=== PATIENT | female | born 1975 | race African-American/Black ===

== ENCOUNTER 2017-03-20 12:24 | Emergency (ER) | payer BC, OTHER ==
[~2017-03-20] VITALS: Ht 165.1 cm; Wt 67.6 kg
[~2017-03-20 12:24] MED LIST: IBUP-1050 PO
[2017-03-20 12:37] VITALS: TEMP 36.6; Ht 165.1 cm; Wt 67.6 kg
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
[2017-03-20 14:00] VITALS: BP 128/87; PULSE 83; O2SAT 99
== END 2017-03-20 14:01 | disposition home or self-care (01) ==
LOC: C.EDB 12:25 → C.EDD 14:01
DX: S00.83XA Contusion of other part of head, initial encounter (principal); S00.531A Contusion of lip, initial encounter; S39.012A Strain of muscle, fascia and tendon of lower back, initial encounter; S30.0XXA Contusion of lower back and pelvis, initial encounter; V43.52XA Car driver injured in collision with other type car in traffic accident, initial encounter

== ENCOUNTER → 2017-06-06 | Outpatient (CLI) | payer BC ==
[2017-06-06 09:44] LABS: GLUCOSE,FASTING 90 mg/dl (70-99)
[2017-06-06 09:47] LABS: CHOLESTEROL 158 mg/dl (0-200)
[2017-06-06 10:56] LABS: ESTIMATED AVERAGE GLUCOSE 120 mg/dl; HA1C FLAG Normal (Normal)
== END | disposition home or self-care (01) ==
LOC: C.LAB 07:42
PROVIDERS: ATTEND Family Medicine
DX: R53.83 Other fatigue (principal)

== ENCOUNTER 2019-09-11 08:15 | Inpatient (IN) ==
--- OUTSIDE RECORDS SUMMARY | 2019-09-11 08:18 | External Medical Summary | Continuity of Care Document ---
:1975 Author Name Kolby George Address Unavailable Unavailable , Care Team Providers Name Role Phone Unavailable Unavailable Unavailable Viktoriya Diaz M.D. Unavailable [email or web address] Tuyet Harris DO Unavailable [email or web address] Javier DIAZ Unavailable Unavailable Unavailable Unavailable Unavailable Assessments Assessed Problems:FHx: malignant neoplasm of gastrointestinal tract Problems A Fall Due To Slipping, Tripping, Or Stumbling (E885.9) Hematochezia (578.1) (K92.1) Urinary tract infection (599.0) (N39.0) Palpitations (785.1) (R00.2) Fatigue (780.79) (R53.83) Joint pain, knee (719.46) (M25.569) Pain in joint of right shoulder (719.41) (M25.511) Anxiety (300.00) (F41.9) Otitis externa (380.10) (H60.90) Allergies and Adverse Reactions No Known Drug Allergies (Allergy) Medications Mariela WILLOUGHBY M.D. Start: 08-Jun-2012 Refills: 0 ALPRAZolam 0.25 MG Oral Tablet; TAKE 1 TABLET TWICE DA JADA. Ariel Diaz Start: 31-Jan-2014 Quantity: 20 Refills: 0 Mefloquine HCl - 250 MG Oral Tablet; BENJAMIN E 1 TABLET WEEKLY (ON THE SAME DAY OF EACH WEEK) BEGINNING 1 WEEK BEFORE DEPARTURE, CONTINUE DURING TRAVEL AND FOR 4 WEEKS AFTER RETURN. Ariel Diaz Start: 31-Jan-2014 Quantity: 20 Refills: 5 levoFLOXacin 500 MG Oral Tablet; TAKE ON E TABLET BY MOUTH ONCE EVERY DAY FOR 10 DAYS Ariel Diaz Start: 31-Jan-2014 Quantity: 10 Refills: 3 PEG-3350/Electrolytes 236 GM Oral Soluti on Reconstituted; DRINK 1 8OZ. GLASS EVERY 10-15 MINUTES Case, DO Stephen BrendaMaddie Start: 10-Jun-2014 Quantity: 1 4000 ML Bottle Refills: 0 Fluocinonide 0.05 % External Cream; APPL Y SPARINGLY TO AFFECTED AREA(S) TWICE DAILY Ariel Diaz Start: 08-Jun-2012 Quantity: 1 60 GM Tube Refills: 5 Procedures Procedures not documented Immunizations Immunizations not documented Family History Father FHx: malignant neoplasm of gastrointestinal tract (V16 .0) (Z80.0) Status: Active Social History - Smoking Status Never smoker Plan of Treatment Planned Observations Planned Goals not documented Results No Known Results Results not documented
[2019-09-11] MEDS ORDERED: SODIUM CHLORIDE 0.9% 1000ML 1,000 ML IV SCH (08:45)
[2019-09-11] MEDS: METOPROLOL TARTRATE 1 MG/ML VIAL IV PRN ×3 (08:47→09:22)
[2019-09-11 08:49] LABS: Basophils # (auto) 0.02 K/uL (0-0.2); Basophils % (auto) 0.4 %; Eosinophils # (auto) 0.04 K/uL (0-0.5); Eosinophils % (auto) 0.7 %; Hematocrit (blood only) 40.1 % (37-47); Hemoglobin 13.5 g/dL (12.0-16.0); Immature Granulocytes # (auto) 0.01 K/uL (0.00-0.02); Immature Granulocytes % (auto) 0.2 %; Lymphocytes # (auto) 1.56 K/uL (1.2-3.4); Lymphocytes % (auto) 28.6 %; Mean Corpuscular Hemoglobin 30.8 pg (25-34); Mean Corpuscular Hgb Conc 33.7 g/dL (32-36); Mean Corpuscular Volume 91.3 fL (80-100); Mean Platelet Volume 10.9 fL (7.4-10.4); Monocytes # (auto) 0.37 K/uL (0.11-0.59); Monocytes % (auto) 6.8 %; Neutrophils # (auto) 3.46 K/uL (1.4-6.5); Neutrophils % (auto) 63.3 %; Platelet Count 232 K/uL (130-400); RDW Coefficient of Variation 14.1 % (11.5-14.5); RDW Standard Deviation 47.2 fL (36.4-46.3); Red Blood Count 4.39 M/uL (4.2-5.4); White Blood Count 5.46 K/uL (4.8-10.8)
[2019-09-11 09:07] LABS: Albumin Level 3.8 gm/dl (3.4-5.0); BUN Creatinine Ratio 13.2 (10-20); Calcium 9.1 mg/dl (8.5-10.1); Creatinine Clr Calc Pharmacy 77.1 ml/min; Est GFR (African American) 99.5; Est GFR (Non-African American) 85.8; Magnesium 2.3 mg/dl (1.8-2.4); Potassium 3.9 mmol/L (3.5-5.1)
[2019-09-11 09:17] LABS: Albumin Globulin Ratio 0.9 (0.9-2); Bilirubin,Total 0.2 mg/dl (0.2-1); Globulin 4.1 gm/dl (2.5-4.0); Thyroid Stimulating Hormone 0.248 uIu/ml (0.300-4.500); Total Protein 7.9 gm/dl (6.4-8.2)
[2019-09-11 09:30] LABS: T4 Free Thyroxine 0.99 ng/dl (0.8-1.6)
[2019-09-11] MEDS ORDERED: dilTIAZem HCl 5 MG/ML 5 ML VIAL IV STA ×2 (09:41→11:08)
--- NOTE | 2019-09-11 10:37 | History & Physical Report ---
Date of Service September 11, 2019 Assessment & Plan (1) Atrial flutter with rapid ventricular response: Patient was started on Cardizem drip which will be titrated per protocol. Add Lovenox. Check echocardiogram. Monitor electrolytes. Patient will be monitored on the telemetry floor. Present on Admission?: Yes (2) Palpitations: Secondary to atrial flutter with rapid ventricular rate. Present on Admission?: Yes (3) Low TSH level: We will check T3 and T4 levels. Present on Admission?: Yes (4) Anxiety: May need antianxiety medications. History of Present Illness Chief Complaint: Palpitations Primary Care Provider: Maximus Morales MD The patient is 44-year-old female originally from [facility]. She presented to the ER today with chief complaints of palpitations. She woke up this morning approximately 2 AM with palpitations. No significant chest pain or shortness of breath. No swelling of the legs. No syncope. She had few beers last night. Here in the ER, she was found to be having atrial flutter with rapid ventricular rate. She received metoprolol x3 and also Cardizem bolus but her heart rate remains high; she will be started on Cardizem drip. She will be admitted for further evaluation and management. Allergies Allergy/AdvReac Type Severity Reaction Status Date / Time No Known Allergies Allergy Unknown Verified 09/11/19 08:59 Home Medications Home Medications Medication Instructions Recorded Confirmed Type ascorbic acid (vitamin C) [Vitamin 1 g PO DAILY 09/11/19 09/11/19 History C] biotin 1 mg PO DAILY 09/11/19 09/11/19 History cholecalciferol (vitamin D3) 1,000 unit PO DAILY 09/11/19 09/11/19 History [Vitamin D3] cyanocobalamin (vitamin B-12) 1,000 mcg PO DAILY 09/11/19 09/11/19 History [Vitamin B-12] multivitamin 1 tab PO DAILY 09/11/19 09/11/19 History omega 8-[id number]-pmu-fish oil [Fish Oil] 1 cap PO DAILY 09/11/19 09/11/19 History zinc 50 mg PO DAILY 09/11/19 09/11/19 History Past Med/Surg History Medical History No significant past medical history Family History Other No significant family history Social History marital status: Current Living Situation: Spouse current occupational status: employed Feels Safe at Home: Yes Smoking Status: Never smoker Review of Systems Review of Systems: All systems reviewed & are unremarkable except as noted in HPI & below Psychiatric: + anxiety Physical Exam Physical Exam: GENERAL : No acute distress EYES: No icterus, gaze conjugate NOSE: No evidence of epistaxis MOUTH: No lesions or candidiasis, mucosa moist NECK: Supple LUNGS: CTA B/L, no wheezes, rales or rhonchi HEART: Irregular, atrial flutter noted on the monitor. ABDOMEN: Soft, NT, ND, BS Present EXTREMITIES: No LE edema, pedal pulses intact NEURO: A&OX3 Results & Data Vital Signs (Past 12 Hours) Vital Signs Temp Pulse Pulse Resp BP BP Pulse Ox 09/11/19 10:20 77 19 100 09/11/19 10:10 78 16 100 09/11/19 10:01 77 17 99 09/11/19 10:00 78 14 110/75 99 09/11/19 09:52 76 83 17 112/80 112/80 100 09/11/19 09:45 143 H 15 99 09/11/19 09:40 144 H 11 L 114/97 100 09/11/19 09:25 144 H 18 118/96 09/11/19 09:23 145 H 13 124/92 100 09/11/19 09:22 143 H 124/92 09/11/19 09:17 145 H 10 L 120/99 100 09/11/19 09:12 145 H 146/105 H 09/11/19 09:10 144 H 12 120/99 100 09/11/19 09:00 143 H 145 H 16 146/105 H 146/105 H 100 09/11/19 08:53 143 H 15 131/96 100 09/11/19 08:47 153 H 134/90 09/11/19 08:35 100 09/11/19 08:19 98.4 F 156 H 18 127/59 L 100 Laboratory Results 09/11/19 08:35 09/11/19 08:35 Code Status & VTE Plan Code Status full code VTE Prophylaxis Plan VTE Prophylaxis will be ordered: Yes PG Care Time/CCT Total # of Minutes Spent Total Time Spent with Patient: Total time spent is greater than 50% in coordin ation of care (as documented) at patient's floor/unit and/or counseling patient: 60 m
[2019-09-11] MEDS ORDERED: ALUMINUM/MAGNESIUM SUSP 30 ML UDC PO PRN (11:29)
[2019-09-11] MEDS ORDERED: POLYETHYLENE (MIRALAX) 17 GM PACK PO PRN (11:29)
[2019-09-11] MEDS ORDERED: ONDANSETRON INJ 2 MG/ML 2 ML VIAL IV PRN (11:29)
[2019-09-11] MEDS ORDERED: LORazepam 0.5 MG TAB PO PRN (11:29)
[2019-09-11] MEDS ORDERED: NITROGLYCERIN SL 0.4 MG/TAB TAB SL PRN (11:29)
[2019-09-11] MEDS ORDERED: ZOLPIDEM TARTRATE 5 MG TAB PO PRN (11:29)
[2019-09-11] MEDS ORDERED: MAGNESIUM HYDROXIDE SUSP 30 ML UDC PO PRN (11:29)
[2019-09-11] MEDS ORDERED: ACETAMINOPHEN 325 MG TAB PO PRN (11:29)
[2019-09-11] MEDS ORDERED: MoRPHine SULFATE 2 MG/ML CARP IV PRN (11:29)
[2019-09-11] MEDS ORDERED: dilTIAZem HCl 5 MG/ML 5 ML VIAL IV ONE (12:21)
[2019-09-11] MEDS: dilTIAZem HCl 125 MG in DEXTROSE 5% 100 ML IV SCH ×2 (12:23→21:53)
[2019-09-11] MEDS: SODIUM CHLORIDE 0.9% 1000ML 1,000 ML IV SCH ×2 (12:25→21:53)
[2019-09-11] MEDS: ENOXAPARIN INJ 60 MG/0.6 ML SYR SQ SCH ×2 (13:20→23:10)
--- NOTE | 2019-09-11 14:19 | Emergency Department Note ---
Entered by Sheree Moreland acting as a scribe for History of Present Illness General Chief complaint: Arrhythmia/Palpitations Stated complaint: heart racing Source: patient History of Present Illness Onset (ago): hour(s) (this morning) Location: chest Pain Consistency: + other (episode) Quality: + other (elevated heart rate) Associated symptoms: + denies other symptoms (weight loss, hair loss) The patient is a 44 year old female that is presenting to the Emergency Room with complaints of an episode of an elevated heart rate that started around 0230 this morning. The patient reports that she woke up this morning and felt like her heart was racing. She states that she felt generally well yesterday. She denies any recent weight or hair loss. She notes that she drinks a Detox tea and green tea but denies any other caffeine intake. 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 She denies any significant medical problems or taking any daily medications. She denies any cardiac history. She notes that her last menstrual period started on 09/08/19. Home Medications Home Medications Medication Instructions Recorded Confirmed Type ascorbic acid (vitamin C) [Vitamin 1 g PO DAILY 09/11/19 09/11/19 History C] biotin 1 mg PO DAILY 09/11/19 09/11/19 History cholecalciferol (vitamin D3) 1,000 unit PO DAILY 09/11/19 09/11/19 History [Vitamin D3] cyanocobalamin (vitamin B-12) 1,000 mcg PO DAILY 09/11/19 09/11/19 History [Vitamin B-12] multivitamin 1 tab PO DAILY 09/11/19 09/11/19 History omega 4-efx-odr-fish oil [Fish Oil] 1 cap PO DAILY 09/11/19 09/11/19 History zinc 50 mg PO DAILY 09/11/19 09/11/19 History Allergies Allergy/AdvReac Type Severity Reaction Status Date / Time No Known Allergies Allergy Unknown Verified 09/11/19 08:59 Past Med/Surg History Medical History No significant past medical history Family History Other No significant family history Social History Preferred Language: Dutch Communication Ability: Effective General Internist Required: No Beliefs That Will Affect Care: None marital status: Current Living Situation: Family Current Living Situation Comment: , son current occupational status: employed Feels Safe at Home: Yes Smoking Status: Never smoker Hx Alcohol Use: Yes Alcohol type: wine Hx Substance Use: No Review of Systems See HPI for pertinent positives & negatives. and A total of 10 systems reviewed and were otherwise negative Physical Exam Vital Signs Vital Signs - 24 hr 09/11/19 08:19 09/11/19 08:35 09/11/19 08:47 Temperature 36.9 C Temperature Source Oral Sepsis Recent Fever Within 48 Hours No Sepsis Action Taken by Nursing No Action Required Pulse Rate 156 H 153 H Pulse Rate [Apical] Pulse Rate from SpO2 Sensor Pulse Rhythm [Apical] Respiratory Rate 18 Respiratory Effort / Characteristics Non-Labored Spontaneous Respiratory Depth Normal Respiratory Pattern Blood Pressure 127/59 L 134/90 Blood Pressure [Left Arm] Blood Pressure Mean 81 Blood Pressure Mean [Left Arm] Blood Pressure Position Sitting Blood Pressure Position [Left Arm] Pulse Oximetry 100 100 Oxygen Delivery Method Room Air Room Air Oxygen Flow Rate 09/11/19 08:53 09/11/19 09:00 09/11/19 09:10 Temperature Temperature Source Sepsis Recent Fever Within 48 Hours Sepsis Action Taken by Nursing Pulse Rate 143 H 144 H Pulse Rate [Apical] 143 H 145 H Pulse Rate from SpO2 Sensor 143 H 144 H Pulse Rhythm [Apical] Regular Respiratory Rate 15 16 12 Respiratory Effort / Characteristics Non-Labored Non-Labored Respiratory Depth Normal Normal Respiratory Pattern Regular Regular Blood Pressure 146/105 H 120/99 Blood Pressure [Left Arm] 131/96 146/105 H Blood Pressure Mean 118 106 Blood Pressure Mean [Left Arm] 107 118 Blood Pressure Position Blood Pressure Position [Left Arm] Lying Sitting Pulse Oximetry 100 100 100 Oxygen Delivery Method Room Air Room Air Oxygen Flow Rate 0 09/11/19 09:12 09/11/19 09:17 09/11/19 09:22 Temperature Temperature Source Sepsis Recent Fever Within 48 Hours Sepsis Action Taken by Nursing Pulse Rate 145 H 145 H 143 H Pulse Rate [Apical] Pulse Rate from SpO2 Sensor 145 H Pulse Rhythm [Apical] Respiratory Rate 10 L Respiratory Effort / Characteristics Respiratory Depth Respiratory Pattern Blood Pressure 146/105 H 120/99 124/92 Blood Pressure [Left Arm] Blood Pressure Mean 106 Blood Pressure Mean [Left Arm] Blood Pressure Position Blood Pressure Position [Left Arm] Pulse Oximetry 100 Oxygen Delivery Method Oxygen Flow Rate 09/11/19 09:23 09/11/19 09:25 09/11/19 09:40 Temperature Temperature Source Sepsis Recent Fever Within 48 Hours Sepsis Action Taken by Nursing Pulse Rate 145 H 144 H 144 H Pulse Rate [Apical] Pulse Rate from SpO2 Sensor 145 H 144 H Pulse Rhythm [Apical] Respiratory Rate 13 18 11 L Respiratory Effort / Characteristics Respiratory Depth Respiratory Pattern Blood Pressure 124/92 118/96 114/97 Blood Pressure [Left Arm] Blood Pressure Mean 102 103 102 Blood Pressure Mean [Left Arm] Blood Pressure Position Blood Pressure Position [Left Arm] Pulse Oximetry 100 100 Oxygen Delivery Method Oxygen Flow Rate 09/11/19 09:45 09/11/19 09:52 09/11/19 10:00 Temperature Temperature Source Sepsis Recent Fever Within 48 Hours Sepsis Action Taken by Nursing Pulse Rate 143 H 76 78 Pulse Rate [Apical] 83 Pulse Rate from SpO2 Sensor 143 H 76 78 Pulse Rhythm [Apical] Irregular Respiratory Rate 15 17 14 Respiratory Effort / Characteristics Non-Labored Respiratory Depth Normal Respiratory Pattern Blood Pressure 112/80 110/75 Blood Pressure [Left Arm] 112/80 Blood Pressure Mean 90 86 Blood Pressure Mean [Left Arm] 90 Blood Pressure Position Blood Pressure Position [Left Arm] Sitting Pulse Oximetry 99 100 99 Oxygen Delivery Method Room Air Oxygen Flow Rate 09/11/19 10:01 09/11/19 10:10 09/11/19 10:20 Temperature Temperature Source Sepsis Recent Fever Within 48 Hours Sepsis Action Taken by Nursing Pulse Rate 77 78 77 Pulse Rate [Apical] Pulse Rate from SpO2 Sensor 78 78 78 Pulse Rhythm [Apical] Respiratory Rate 17 16 19 Respiratory Effort / Characteristics Respiratory Depth Respiratory Pattern Blood Pressure Blood Pressure [Left Arm] Blood Pressure Mean Blood Pressure Mean [Left Arm] Blood Pressure Position Blood Pressure Position [Left Arm] Pulse Oximetry 99 100 100 Oxygen Delivery Method Oxygen Flow Rate Vital signs reviewed. General: Well-appearing female, in no significant distress. HEENT: No scleral icterus, PERRLA, neck supple. Atraumatic. Cardiovascular: Tachycardic rate and regular rhythm, no extra sounds. Pulmonary: Clear to auscultation bilaterally, normal work of breathing. Abdomen: Soft, nontender, nondistended, positive bowel sounds. Musculoskeletal: Atraumatic, no peripheral edema. Neurologic: Patient awake alert and oriented x 3 Skin: Warm, dry, no rash Course 0831:The patient was evaluated in room B05. A complete history and physical examination was performed. 1028: I discussed the patients case with Dr. Leggett, [facility], who will evaluate the patient for further management and care. 1030: Upon reevaluation, the patient is resting comfortably. I discussed laboratory and radiographic results with the patient. She verbalized agreement of the treatment plan. The patient will be evaluated for further management and care. Administered Medications Enoxaparin Sodium (Lovenox) 60 mg SQ Q12 AJNET Stop: 10/11/19 12:29 Last Admin: 09/11/19 13:20 Dose: 60 mg Documented by: [id number] Diltiazem HCl 125 mg/ Dextrose 125 mls @ 10 mls/hr IV .[id number] JANET; Protocol Stop: 10/11/19 11:14 Last Titration: 09/11/19 13:20 Dose: 10 mg/hr, 10 mls/hr Documented by: [id number] Admin: 09/11/19 12:23 Dose: 5 mg/hr, 5 mls/hr Documented by: [id number] Cosigned by: [id number] Sodium Chloride (Nss 1000ml) 1,000 mls @ 100 mls/hr IV .Q10H JANET Stop: 10/11/19 11:59 Last Admin: 09/11/19 12:25 Dose: 100 mls/hr Documented by: [id number] Discontinued Medications Diltiazem HCl (Cardizem) 10 mg IV NOW STA Stop: 09/11/19 09:42 Last Admin: 09/11/19 09:46 Dose: 10 mg Documented by: [id number] Cosigned by: [id number] Diltiazem HCl (Cardizem) 10 mg IV NOW STA Stop: 09/11/19 11:09 Last Admin: 09/11/19 12:25 Dose: 10 mg Documented by: [id number] Cosigned by: [id number] Diltiazem HCl (Cardizem) Confirm Administered Dose 25 mg IV .STK-MED ONE Stop: 09/11/19 12:22 Last Admin: 09/11/19 12:25 Dose: Not Given Documented by: [id number] Sodium Chloride (Nss 1000ml) 1,000 mls @ 125 mls/hr IV .Q8H JANET Stop: 09/11/19 16:44 Last Infusion: 09/11/19 11:53 Dose: 0 mls/hr Documented by: [id number] Admin: 09/11/19 08:47 Dose: 125 mls/hr Documented by: [id number] Metoprolol Tartrate (Lopressor) 5 mg IV Q5M PRN PRN Reason: Tachycardia Stop: 10/11/19 08:37 Last Admin: 09/11/19 09:22 Dose: 5 mg Documented by: [id number] Admin: 09/11/19 09:12 Dose: 5 mg Documented by: [id number] Admin: 09/11/19 08:47 Dose: 5 mg Documented by: [id number] Medical Decision Making Differential Diagnosis Differential diagnosis: Etiologies such as premature contractions, electrolyte abnormality, cardiac dysrhythmia, thyroid dysfunction, pulmonary embolism, infection, gastrointestinal, as well as others were entertained. Medical Records Attestation: I reviewed the patient's medical records. Home Medications Current Medication List: was personally reviewed by me Laboratory Data Attestation: I reviewed the patient's lab results. Result diagrams: 09/11/19 08:35 09/11/19 08:35 Lab Results 09/11/19 09/11/19 Range/Units 08:35 08:35 WBC 5.46 (4.8-10.8) K/uL RBC 4.39 (4.2-5.4) M/uL Hgb 13.5 (12.0-16.0) g/dL Hct 40.1 (37-47) % MCV 91.3 (80-100) fL MCH 30.8 (25-34) pg MCHC 33.7 (32-36) g/dL RDW Std Deviation 47.2 H (36.4-46.3) fL RDW Coeff of Jacinto 14.1 (11.5-14.5) % Plt Count 232 (130-400) K/uL MPV 10.9 H (7.4-10.4) fL Immature Gran % (Auto) 0.2 % Neut % (Auto) 63.3 % Lymph % (Auto) 28.6 % [place] % (Auto) 6.8 % Eos % (Auto) 0.7 % Baso % (Auto) 0.4 % Immature Gran # (Auto) 0.01 (0.00-0.02) K/uL Neut # (Auto) 3.46 (1.4-6.5) K/uL Lymph # (Auto) 1.56 (1.2-3.4) K/uL [place] # (Auto) 0.37 (0.11-0.59) K/uL Eos # (Auto) 0.04 (0-0.5) K/uL Baso # (Auto) 0.02 (0-0.2) K/uL Sodium 137 (136-145) mmol/L Potassium 3.9 (3.5-5.1) mmol/L Chloride 105 (98-107) mmol/L Carbon Dioxide 25 (21-32) mmol/L Anion Gap 7.0 (3-11) BUN 11 (7-18) mg/dl Creatinine 0.82 (0.6-1.2) mg/dl Est Cr Clr Drug Dosing 77.1 ml/min Est GFR ( Amer) 99.5 Est GFR (Non-Af Amer) 85.8 BUN/Creatinine Ratio 13.2 (10-20) Glucose 115 H (70-99) mg/dl Calcium 9.1 (8.5-10.1) mg/dl Magnesium 2.3 (1.8-2.4) mg/dl Total Bilirubin 0.2 (0.2-1) mg/dl AST 17 (15-37) U/L ALT 23 (12-78) U/L Alkaline Phosphatase 45 (45-117) U/L Total Protein 7.9 (6.4-8.2) gm/dl Albumin 3.8 (3.4-5.0) gm/dl Globulin 4.1 H (2.5-4.0) gm/dl Albumin/Globulin Ratio 0.9 (0.9-2) TSH 0.248 L (0.300-4.500) uIu/ml Free T4 0.99 (0.8-1.6) ng/dl ECG Data Attestation: I personally reviewed and interpreted this ECG as follows: Indication: + palpitations Rate (beats per minute): 152 Rhythm: + atrial flutter ECG Findings: + Other (2 to 1 AV conduction, non-specific ST changes, QTC 521) Comparison ECG Date: no prior available Additional Comments: Repeat EKG: Atrial flutter at a rate of 100bpm. Variable AV block, QTC 428, no PACs, no PACs. Blood Pressure Blood Pressure Findings: Elevated blood pressure Blood Pressure Disposition: did not require urgent referral MDM Narrative This patient was evaluated and appeared to be in no significant distress. IV access was obtained and laboratory work was drawn. Patient was placed on the wealth management advisor and found to be in rapid atrial flutter at approximately 150 bpm. Patient was given metoprolol 5 mg IV x3 doses. She remained tachycardic a nd was subsequently given Cardizem 10 mg IV with significant improvement in rate control. Patient did remain in a rate controlled atrial flutter with variable block. Patient's laboratory work is reassuring. Given the new onset atrial flutter and difficulty with rate control, the patient's case was discussed with the hospitalist service. Patient was advised of the findings and plan. She agrees to hospitalization and will return to the ED for worsening of symptoms or any medical concerns. Impression & Plan New onset atrial flutter Critical Care Time Critical Care Time: Yes Total Critical Care Time: 45 I have personally spent 45 minutes of critical care time in the direct management of this patient. This includes bedside care, interpretation of diagnostic studies, and testing, discussion with consultants, patient, and family members, and other required patient management activities. This 45 minutes is in excess of all separately billable procedures. Discharge Plan Visit Data *Final* Discharge Date/Time: 09/11/19 11:09 Chief Complaint: Arrhythmia/Palpitations Stated Complaint: heart racing ED Provider: Radha Little Discharge Problem: New onset atrial flutter Patient Disposition: Admitted As Inpatient Discharge Instructions Interventions: ED Discharge Assessment Last Done: 09/11/19 11:09 The scribe's documentation has been prepared under my direction and personally reviewed by me in its entirety. I confirm that the note above accurately reflects all work, treatment, procedures, and medical decision making performed by me.
--- NOTE | 2019-09-11 17:20 | Cardiology Consultation ---
Date of Consultation September 11, 2019 Assessment & Plan (1) Atrial flutter with rapid ventricular response: She appears to have a typical right atrial flutter. She does have some right atrial enlargement on her echocardiogram which is curious. She does not endorse symptoms of pulmonary disease although there is a possibility she has occult sleep apnea. She has remarkably few symptoms associated with her arrhythmia. She does notice the rapid heartbeat but does not have associated dizziness, lightheadedness, chest discomfort or breathing difficulty. In fact, she was able to work for couple of hours today and only came to the emergency room on the advice of the facility physician. I think she is quite reliable with respect to the time she developed the arrhythmia. I think she certainly has had the arrhythmia for less than 24 hours. Therefore, I think we can attempt rhythm control with little risk of thromboembolic events. There are several agents from which we could choose, but I think the easiest would be oral flecainide. She has a structurally normal heart and I think this has is good chance of any is converting her back to normal without the complexities of trying to administer ibutilide. There is a reasonable chance she will convert spontaneously. If he continues in atrial flutter until tomorrow morning we could try an alternate antiarrhythmic or simply wait until Friday for the opportunity to perform electrical cardioversion. She should continue on systemic anticoagulation at this time. If she converts spontaneously she may not require any anticoagulation time of discharge. However, best policy would likely be 3 weeks systemic anticoagulation after conversion. She would not require long-term anticoagulation based on her low chads Vasc score. Her rate continues to be elevated. It is unlikely that diltiazem or other rate control agents will have significant effective this is an atrial flutter and not atrial fibrillation. However, she is otherwise healthy, has a structurally normal heart and no symptoms associated with a high heart rates. Do not think any more aggressive treatment in that regard is currently required. She could certainly have high heart rates for weeks without any likely detrimental effect. Finally, she had some questions regarding long-term therapy. Given this episode, she is at risk for additional episodes. In fact, it is likely she will have an additional episode however what is less clear is when it would recur. She could easily go years without any recurrence. She appears to have a typical right atrial flutter and would likely be a good candidate for catheter based therapy in order to produce a cure as well. Will likely discuss these issues prior to her discharge. History of Present Illness Reason for Consultation: Atrial flutter Requesting Physician: Betsey Attending Physician: Nba Leggett MD History of Present Illness The patient is a 44-year-old woman without a known history of cardiac disease who presented to the emergency room for symptoms palpitations and a rapid heartbeat. Patient states she woke up early this morning to urinate. Upon lying down to go back to sleep the patient did noticed a pounding in her chest and a sensation of a rapid heartbeat. She does not appear to have any additional associated symptoms. In fact, she attempted to go back to sleep and woke up for work around 6 a.m.. She made breakfast and actually went to work. She did notice a high heart rate using a pulse oximeter and other measuring devices at work. She works in a retirement. She continued to work for approximately 2 hours when she contacted the facility physician who recommended she go to the emergency room. Again, the patient denied other symptoms such as dizziness or lightheadedness, chest discomfort or breathing difficulty. She cannot recall having had a similar episode in the past. She does report some fleeting flutters at random times but these are rare and chronic in nature. Patient states that she did not have similar symptoms over the past week. She cannot recall having a sensation of rapid heartbeat or pounding heartbeat when she went to bed last evening. She has been working a lot lately and has felt somewhat fatigued. She did not endorse any other symptoms. Allergies Allergy/AdvReac Type Severity Reaction Status Date / Time No Known Allergies Allergy Unknown Verified 09/11/19 08:59 Home Medications Home Medications Medication Instructions Recorded Confirmed Type ascorbic acid (vitamin C) [Vitamin 1 g PO DAILY 09/11/19 09/11/19 History C] biotin 1 mg PO DAILY 09/11/19 09/11/19 History cholecalciferol (vitamin D3) 1,000 unit PO DAILY 09/11/19 09/11/19 History [Vitamin D3] cyanocobalamin (vitamin B-12) 1,000 mcg PO DAILY 09/11/19 09/11/19 History [Vitamin B-12] multivitamin 1 tab PO DAILY 09/11/19 09/11/19 History omega 5-tcs-owy-fish oil [Fish Oil] 1 cap PO DAILY 09/11/19 09/11/19 History zinc 50 mg PO DAILY 09/11/19 09/11/19 History Patient History Medical History No significant past medical history Family History Other No significant family history Social History Preferred Language: Japanese Communication Ability: Effective 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 Lately she has been having some discomfort in the neck and upper back associated with activity. Physical Exam Physical Exam: She is alert and oriented x3. Mood affect appear normal. She answered all questions appropriately. HEENT: Sclerae are anicteric. Pupils are equal and reactive to light and accommodation. Extraocular movements were intact. Neuro: Cranial nerves intact Neck: Examination of the submandibular region did not reveal any significant lymphadenopathy. Carotids are palpable bilaterally and free of bruits on auscultation. There was no evidence of jugular venous distention. The thyroid was not enlarged. Lungs: Lungs are clear to auscultation bilaterally. There are no rales wheezes or rhonchi. She has normal respiratory effort without use of accessory muscles. There is normal pulmonary excursion. Cardiac: The rhythm was regular but tachycardic. S1 and S2 were normal. There are no murmurs on examination. The PMI was not markedly displaced on palpation. Abdomen: The abdomen was soft and nontender. Extremities: Patient has bilateral radial pulses that are equal in intensity. There is no evidence cyanosis or clubbing. There was no evidence of significant peripheral edema bilaterally. Skin: There are no rashes noted on examination today. Results & Data Vital Signs (Past 12 Hours) Vital Signs Temp Pulse Pulse Resp BP BP Pulse Ox 09/11/19 15:41 36.6 C 153 H 19 122/95 98 09/11/19 14:44 94 H 09/11/19 14:41 119/93 09/11/19 13:15 140 H 122/98 09/11/19 11:54 36.7 C 147 H 14 134/105 H 100 09/11/19 11:30 36.7 C 147 H 147 H 14 134/105 H 100 09/11/19 11:06 122 H 15 125/81 99 09/11/19 10:20 77 19 100 09/11/19 10:10 78 16 100 09/11/19 10:01 77 17 99 09/11/19 10:00 78 14 110/75 99 09/11/19 09:52 76 83 17 112/80 112/80 100 09/11/19 09:45 143 H 15 99 09/11/19 09:40 144 H 11 L 114/97 100 09/11/19 09:25 144 H 18 118/96 09/11/19 09:23 145 H 13 124/92 100 09/11/19 09:22 143 H 124/92 09/11/19 09:17 145 H 10 L 120/99 100 09/11/19 09:12 145 H 146/105 H 09/11/19 09:10 144 H 12 120/99 100 09/11/19 09:00 143 H 145 H 16 146/105 H 146/105 H 100 09/11/19 08:53 143 H 15 131/96 100 09/11/19 08:47 153 H 134/90 09/11/19 08:35 100 09/11/19 08:19 36.9 C 156 H 18 127/59 L 100 Laboratory Results Abnormal Lab Results 09/11/19 09/11/19 08:35 08:35 WBC 5.46 RBC 4.39 Hgb 13.5 Hct 40.1 MCV 91.3 MCH 30.8 MCHC 33.7 RDW Std Deviation 47.2 H RDW Coeff of Jacinto 14.1 Plt Count 232 MPV 10.9 H Immature Gran % (Auto) 0.2 Neut % (Auto) 63.3 Lymph % (Auto) 28.6 [place] % (Auto) 6.8 Eos % (Auto) 0.7 Baso % (Auto) 0.4 Immature Gran # (Auto) 0.01 Neut # (Auto) 3.46 Lymph # (Auto) 1.56 [place] # (Auto) 0.37 Eos # (Auto) 0.04 Baso # (Auto) 0.02 Sodium 137 Potassium 3.9 Chloride 105 Carbon Dioxide 25 Anion Gap 7.0 BUN 11 Creatinine 0.82 Est Cr Clr Drug Dosing 77.1 Est GFR ( Amer) 99.5 Est GFR (Non-Af Amer) 85.8 BUN/Creatinine Ratio 13.2 Glucose 115 H Calcium 9.1 Magnesium 2.3 Total Bilirubin 0.2 AST 17 ALT 23 Alkaline Phosphatase 45 Total Protein 7.9 Albumin 3.8 Globulin 4.1 H Albumin/Globulin Ratio 0.9 TSH 0.248 L Free T4 0.99 Diagnostic Findings Echocardiogram obtained today revealed preserved LV systolic function with normal wall motion. She had some very mild mitral regurgitation and some these suggested possibility of some mild anterior mitral valve prolapse. The right atrium seemed enlarged. ECG Additional Comments: EKG obtained at the time of admission revealed atrial flutter with rapid ventricular rate. Narrow complex QRS. PG Care Time/CCT Total # of Minutes Spent Total Time Spent with Patient: Total time spent is greater than 50% in coordination of care (as documented) at patient's floor/unit and/or counseling patient:
[2019-09-11] MEDS ORDERED: FLECAINIDE ACETATE 100 MG TABLET PO SCH (17:45)
[2019-09-12] MEDS ORDERED: Nursing to Pharmacy Communication ONE (01:48)
[2019-09-12] MEDS: SODIUM CHLORIDE 0.9% 1000ML 1,000 ML IV SCH (06:15)
[2019-09-12] MEDS: ENOXAPARIN INJ 60 MG/0.6 ML SYR SQ SCH (07:38)
[2019-09-12] MEDS ORDERED: ASPIRIN 81 MG ECTAB PO SCH (09:00)
--- NOTE | 2019-09-12 09:19 | Cardiology Progress Note ---
Date of Service September 12, 2019 Assessment & Plan (1) Atrial flutter with rapid ventricular response: Patient has converted back to a sinus rhythm. The total duration of her arrhythmia was likely around 24 hours. She seems like a reliable historian and I think we have a good sense of when this started. She is currently feeling well with the exception of being tired due to lack of sleep. The etiology of her atrial flutter still unclear although she is known to have some right atrial dilation on her echocardiogram. She does not have any additional clinical factors consistent with pulmonary embolus. She did not appear to have significant nighttime desaturations or hypoxia suggesting sleep apnea. She has no other evidence of intrinsic lung disease. It is unclear whether the antiarrhythmic yesterday resulted in conversion or she simply converted on herself. I would favor the latter. Her chads Vasc risk is very low and the duration of her arrhythmia was also quite short. I do not believe she requires ongoing anticoagulation currently. We did discuss the risk of recurrence. It is very likely she will have additional episodes but there may be years in between episodes at this point. I do not think she requires any prophylactic therapy. We did discuss the use of flecainide as a pill in the pocket approach. I think a prescription for flecainide 300 milligrams 1 dose at the onset of arrhythmia would be reasonable. She was also instructed to seek medical attention if taking the medication fails to return her to sinus rhythm. We briefly discussed the option for catheter based therapy and cure of this arrhythmia which appears to be a typical right atrial flutter. Subjective This morning the patient feels better. She is tired and did not sleep very well. She is not currently noticing any sense of palpitation. Review of Systems Review of Systems: Per HPI Physical Exam Physical Exam: She is alert and oriented x3. Mood affect appear normal. She answered all questions appropriately. HEENT: Sclerae are anicteric. Pupils are equal and reactive to light and accommodation. Extraocular movements were intact. Neuro: Cranial nerves intact Lungs: Lungs are clear to auscultation bilaterally. There are no rales wheezes or rhonchi. She has normal respiratory effort without use of accessory muscles. There is normal pulmonary excursion. Cardiac: The rhythm was regular. S1 and S2 were normal. There are no murmurs on examination. The PMI was not markedly displaced on palpation. Extremities: Patient has bilateral radial pulses that are equal in intensity. There is no evidence cyanosis or clubbing. There was no evidence of significant peripheral edema bilaterally. Skin: There are no rashes noted on examination today. Results & Data Vital Signs (Past 12 Hours) Vital Signs Temp Pulse Pulse Pulse Resp BP Pulse Ox 09/12/19 07:43 36.7 C 86 18 120/76 99 09/12/19 07:29 74 09/12/19 03:26 36.8 C 78 18 94/65 L 100 09/12/19 03:00 60 09/12/19 02:00 67 09/12/19 01:41 EDT 103/65 09/12/19 00:28 68 09/12/19 00:11 101/61 09/11/19 23:36 36.9 C 110 H 18 90/52 L 99 Pulse Ox 09/12/19 07:43 09/12/19 07:29 09/12/19 03:26 09/12/19 03:00 99 09/12/19 02:00 97 09/12/19 01:41 EDT 09/12/19 00:28 99 09/12/19 00:11 09/11/19 23:36 ECG Additional Comments: Telemetry currently demonstrates normal sinus rhythm. PG Care Time/CCT Total # of Minutes Spent Total Time Spent with Patient: Total time spent is greater than 50% in coordination of care (as documented) at patient's floor/unit and/or counseling patient:
--- NOTE | 2019-09-12 12:58 | Discharge Summary ---
Date of Service September 12, 2019 Admission HPI Per Admitting Provider The patient is 44-year-old female originally from [facility]. She presented to the ER today with chief complaints of palpitations. She woke up this morning approximately 2 AM with palpitations. No significant chest pain or shortness of breath. No swelling of the legs. No syncope. She had few beers last night. Here in the ER, she was found to be having atrial flutter with rapid ventricular rate. She received metoprolol x3 and also Cardizem bolus but her heart rate remains high; she will be started on Cardizem drip. She will be admitted for further evaluation and management. Principal Diagnosis Atrial flutter, resolved Discharge Exam Constitutional WD/WN, vitals as above Eyes PERRL, conjunctivae normal, anicteric sclerae ENMT external ear and nose normal, oropharynx normal Neck trachea midline, no thyromegaly Respiratory normal respiratory effort, lungs clear to auscultation Cardiovascular RRR, no murmur, no edema Gastrointestinal (Abdomen) normal bowel sounds, soft, nontender, no hepatosplenomegaly Musculoskeletal no cyanosis or clubbing, extremities motor strength 5/5 Skin no rashes, warm and dry Neurologic patellar DTR's 2+ bilat, sensation intact and PERRL, EOMI, accommodation nl, no face palsy, no dysarthria Psychiatric A+Ox3, euthymic affect Lymphatic no cervical or axillary lymphadenopathy Discharge Data Allergies Allergy/AdvReac Type Severity Reaction Status Date / Time No Known Allergies Allergy Unknown Verified 09/11/19 08:59 Consultations 09/11/19 11:23 Consult Cardiology Routine 09/11/19 11:29 Consult Cardiology Routine Hospital Course (1) Atrial flutter with rapid ventricular response: first episode, patient had clear symptoms with palpitations that started in the middle of the night classic pattern for right sided atrial flutter, correlates with her mild to moderate dilation of right atrium she did not respond to Diltiazem drip at 15mg/hr as well as total of 15mg Lopressor IV Dr. Cameron was contacted with cardiology he recommended starting Flecainide 300mg daily to try for medical cardioversion this was deemed safe as she was young patient with clear onset of symptoms < 24 hours she converted to sinus rhythm successfully and stayed in sinus rhythm overnight and this morning discussed plan with Dr. Cameron will d/c to home, prescribed Flecainide 300mg to take as needed for palpitations she also plans on purchasing a digital pulse oximeter so she can record her pulse she will likely go into atrial flutter again in the near future Dr. Cameron would like her to follow up with him in 4-6 weeks (she will be in [place] for the next 3 weeks) may consider ablation in the future no need for anticoagulation at this time as she is in normal sinus rhythm (2) Right atrial dilatation: unclear etiology, no evidence of pulmonary HTN on echo overnight pulse oximetry study showed no significant desaturations on room air could consider an outpatient sleep study when she is back from [facility] (3) Palpitations: Secondary to atrial flutter with rapid ventricular rate. (4) Low TSH level: T 4 normal at 0.9 can follow up with Dr. Morales (5) Anxiety: resolved Total Time Total Time Spent Total Time Spent (In Minutes): 40 minutes Total Time Includes: Examination of the Patient, Discharge Planning, Medication Reconciliation, Communication With Other Providers (Dr. Cameron) and Other (discussed with family at the bedside) Discharge Plan Discharge Items Patient Disposition: Home - Self-Care Reason For Visit: A FLUTTER Discharge Diagnosis: Atrial flutter, resolved, converted to normal sinus rhythm Condition on Discharge: Good Goals: follow up with Dr. Cameron once back in [place] consider outpatient sleep study Activity: Resume your previous activity Lifting: None Bathing: No limitations Exercise/Sports: None Driving/Machine Use: No limitations Non-emergency contact: Primary Care Provider and [employer] Call non-emergency contact if: you have any medication questions and your symptoms worsen Follow-up/Referrals: Maximus Morales MD [Primary Care Provider] - Diet: Regular Addtl Attending Provider Instructions: Medications: - FLECAINIDE: take two tablets (300mg) as needed for palpitations, see below Paroxysmal atrial flutter, resolved after Flecainide unclear why you went into atrial flutter, on echocardiogram your right atrium (upper chamber of heart) is mild to moderately enlarged but nothing else abnormal you responded well to Flecainide, 300mg dose given last night and you converted back no normal rhythm soon after you are clear for discharge with no restrictions, you can travel to [facility] on Friday take the Flecainide with you and if you have the palpitations like you did before, take 300mg and wait 1-2 hours for the symptoms to resolve if the symptoms don't improve then go to a local hospital at this time we do NOT recommend anticoagulation because you are young patient, low risk of clot forming and you were in atrial flutter for less than 24 hours ultimately you will need to follow up with Dr. Cameron once you are back in [place], you should make an appointment for 4-6 weeks from now you will certainly have another episode of atrial flutter in the future now that you have had one episode he will likely recommend a procedure called an ablation which will effectively eliminate the area in your heart that is causing the problems, no need for that procedure at this time Nocturnal desaturation study was NORMAL on room air still recommend that you would get a formal sleep study when you come back Dr. Morales could refer you for that FOLLOW UP - Dr. Morales later this week, call his office tomorrow to schedule a hospital follow up - Dr. Cameron, cardiology in 4-6 weeks, call his office to schedule, Pending Studies at Discharge: No Stand-Alone Forms: My [facility] Plisten, Work/School Release (Inpt), Smoking Cessation Medications and DC Order Prescriptions: New flecainide 150 mg tablet 300 mg PO ONCE PRN (Reason: palpitations) Qty: 20 RF: 0 Continued multivitamin Tablet 1 tab PO DAILY RF: 0 ascorbic acid (vitamin C) [Vitamin C] 1,000 mg Tablet 1 g PO DAILY RF: 0 cyanocobalamin (vitamin B-12) [Vitamin B-12] 1,000 mcg Tablet 1,000 mcg PO DAILY RF: 0 zinc 50 mg Tablet 50 mg PO DAILY RF: 0 cholecalciferol (vitamin D3) [Vitamin D3] 1,000 unit Capsule 1,000 unit PO DAILY RF: 0 biotin 1 mg Tablet 1 mg PO DAILY RF: 0 omega [id number] oil [Fish Oil] 1,000 mg (120 mg-180 mg) Capsule 1 cap PO DAILY RF: 0 Discharge Orders: Discharge Order (Routine); Ordered 09/12/19 Ordered By: Wing Anna/Other Patient Handouts: Flecainide Acetate Oral tablet, ED Paroxysmal Atrial Flutter Admission Data Admit Date/Time: 09/11/19 10:34 Attending Provider: Wing Flower Admit Provider: Nba Leggett Primary Care Provider: Maximus Morales Other Providers: Edilberto Cameron ; Devin Calvert Other Interventions: Discharge Summary Assessment (RN) Last Done: 09/12/19 10:49 DC Date/Time DO NOT enter until pt leaves facility: 09/12/19 11:36
== END 2019-09-12 11:36 | disposition home or self-care (01) | DRG 310 ==
LOC: ED 08:15 → SUATTDRO 10:34 → 2E 10:34